=== PATIENT | male | born 1985 | race Caucasian/White ===

== ENCOUNTER 2018-12-12 09:24 | Emergency (ER) | payer SELFPAY ==
[2018-12-12 09:44] VITALS: BP 141/85
[2018-12-12] MEDS ORDERED: Ondansetron 4 MG/2 ML SDV IVPUSH ONE (10:21)
[2018-12-12] MEDS ORDERED: HYDROmorphone 1 MG/ML Syringe IVPUSH ONE (10:21)
[2018-12-12] MEDS ORDERED: Sodium Chloride 0.9% 10 ML Syringe FLUSH PRN (10:21)
--- NOTE | 2018-12-12 14:50 | CR ---
Abdomen: Supine and upright views of the abdomen were obtained. Comparison: No prior abdominal imaging. Opacity is noted within the right upper abdomen most likely representing change from previous cholecystectomy. Scattered gas and stool are noted within the colon as well as small amount of small bowel gas which is normal. No free air is seen. No abnormal calcifications or soft tissue abnormality is seen. Impression: 1. Nothing acute is identified on two-view abdominal x-ray. Diagnostic code #2
--- NOTE | 2018-12-12 18:53 | EDM.PDOC ---
ED HPI GENERAL MEDICAL PROBLEM - General Chief Complaint: Abdominal Pain Stated Complaint: R UPPER QUADRANT PAIN Time Seen by Provider: 12/12/18 10:12 Source of Information: Reports: Patient, RN Notes Reviewed - History of Present Illness INITIAL COMMENTS - FREE TEXT/NARRATIVE: 33 year old male with onset of RUQ pain that started Tuesday evening, about 14 to 16 hours RN PERITONEAL DIALYSIS. The pain continued through the night and continues to time of evaluation. There has been some radiation of pain to his back. No fever, chills, nausea or vomiting. No hx of this occuring prior to this time. No chest pain or difficulty breathing. No prior abd surgeries. Right Upper Abdomen Pain Score (Numeric/FACES): 8 - Related Data Allergies Allergy/AdvReac Type Severity Reaction Status Date / Time sulfur Allergy Cannot Uncoded 12/13/18 00:54 Remember Home Meds: Home Meds Acetaminophen/HYDROcodone [[place] 325-5 MG] 1 - 2 tab PO Q6H PRN #12 tablet 12/13 [Rx] Ondansetron [Zofran ODT] 1 tab PO Q8H PRN #10 tab.dis 12/13/18 [Rx] Past Medical History - Past Health History Medical/Surgical History: Denies Medical/Surgical History - Past Surgical History HEENT Surgical History: Reports: Adenoidectomy, Tonsillectomy Social & Family History - Tobacco Use Smoking Status *Q: Light Tobacco Smoker Years of Tobacco use: 10 Packs/Tins Daily: 0 - Caffeine Use Caffeine Use: Reports: Coffee, Soda - Recreational Drug Use Recreational Drug Use: No - Living Situation & Occupation Living situation: Reports: Alone ED ROS GENERAL - Review of Systems Review Of Systems: See Below Constitutional: Denies: Fever, Chills, Diaphoresis HEENT: Reports: No Symptoms Respiratory: Denies: Shortness of Breath Cardiovascular: Denies: Chest Pain GI/Abdominal: Reports: Abdominal Pain, Decreased Appetite. Denies: Constipation , Diarrhea, Hematochezia, Melena, Nausea, Vomiting : Reports: No Symptoms Musculoskeletal: Reports: Back Pain Skin: Reports: No Symptoms ED EXAM, GI/ABD - Physical Exam Exam: See Below General Appearance: Alert, Mild Distress Eyes: Bilateral: Normal Appearance Throat/Mouth: Normal Inspection Head: Atraumatic. No: Facial Swelling Neck: Supple Respiratory/Chest: No Respiratory Distress, Lungs Clear, Normal Breath Sounds Cardiovascular: Regular Rate, Rhythm GI/Abdominal Exam: Soft, Tender (moderate tenderness RUQ, abd otherwise soft and nontender) Back Exam: No: CVA Tenderness (L), CVA Tenderness (R) Extremities: Normal Inspection, Normal Range of Motion Neurological: Alert, Oriented, No Motor/Sensory Deficits Skin Exam: Warm, Dry, Normal Color Course - Vital Signs Last Recorded V/S: Last Vital Signs Temp 96.9 F 12/12/18 09:41 Pulse 60 12/12/18 09:41 Resp 18 12/12/18 09:41 BP 141/85 H 12/12/18 09:41 Pulse Ox 99 12/12/18 09:41 - Orders/Labs/Meds Labs: Laboratory Tests 12/12/18 12/12/18 12/12/18 Range/Units 10:34 10:34 10:34 WBC 12.01 H (4.23-9.07) K/mm3 RBC 5.27 (4.63-6.08) M/mm3 Hgb 15.5 (13.7-17.5) gm/L Hct 46.1 (40.1-51.0) % MCV 87.5 (79.0-92.2) fl MCH 29.4 (25.7-32.2) pg MCHC 33.6 (32.2-35.5) g/dl RDW Std Deviation 41.7 (35.1-43.9) fL Plt Count 323 (163-337) K/mm3 MPV 8.9 L (9.4-12.3) fl Neutrophils % (Manual) 66 H (40-60) % Band Neutrophils % 0 (0-10) % Lymphocytes % (Manual) 29 (20-40) % Atypical Lymphs % 0 % Monocytes % (Manual) 3 (2-10) % Eosinophils % (Manual) 1 (0.8-7.0) % Basophils % (Manual) 1 (0.2-1.2) Platelet Estimate Adequate RBC Morph Comment Normal Sodium 142 (136-145) mEq/L Potassium 4.0 (3.5-5.1) mEq/L Chloride 107 (98-107) mEq/L Carbon Dioxide 26 (21-32) mEq/L Anion Gap 13.0 (5-15) BUN 15 (7-18) mg/dL Creatinine 0.9 (0.7-1.3) mg/dL Est Cr Clr Drug Dosing 117.83 mL/min Estimated GFR (MDRD) > 60 (>60) mL/min BUN/Creatinine Ratio 16.7 (14-18) Glucose 101 (74-106) mg/dL Calcium 8.6 (8.5-10.1) mg/dL Total Bilirubin 0.2 (0.2-1.0) mg/dL AST 13 L (15-37) U/L ALT 30 (16-63) U/L Alkaline Phosphatase 71 (46-116) U/L C-Reactive Protein 0.3 (<1.0) mg/dL Total Protein 6.8 (6.4-8.2) g/dl Albumin 3.7 (3.4-5.0) g/dl Globulin 3.1 gm/dL Albumin/Globulin Ratio 1.2 (1-2) Lipase 109 (73-393) U/L Meds: Medications Discontinued Medications Generic Name Dose Route Start Last Admin Trade Name Freq PRN Reason Stop Dose Admin Hydromorphone HCl 1 mg 12/12/18 10:21 12/12/18 10:26 Dilaudid IVPUSH 12/12/18 10:22 1 mg ONETIME ONE Administration Ondansetron HCl 4 mg 12/12/18 10:21 12/12/18 10:26 Zofran IVPUSH 12/12/18 10:22 4 mg ONETIME ONE Administration Sodium Chloride 10 ml 12/12/18 10:21 12/12/18 10:26 Saline Flush FLUSH 10 ml ASDIRECTED PRN Administration Keep Vein Open - Re-Assessments/Exams Free Text/Narrative Re-Assessment/Exam: 12/12/18 18:53 WBC very mildly elevated at about 12,000. Other labs all releatively normal. He had good relief of pain from dilaudid IV. I felt it important to get an US today. He did eat just before coming to ED so had to wait about 5 hrs to get US. It did show sludge, no evidence of obstruction. See Radiology report for details. Have discussed symptoms and findings with Dr Awad, General Surgeon director of marketing communications. His pain is gone, he has minimal tenderness now right upper quadrant, she feels it is safe to let him go home and she will see him in the clinic early next week. Discharge instructions as documented. Departure - Departure Time of Disposition: 18:51 Disposition: Home, Self-Care 01 Condition: Fair Clinical Impression: Abdominal pain, Cholecystitis - Discharge Information Instructions: Cholecystitis Referrals: PCP,None [Primary Care Provider] - Forms: ED Department Discharge Additional Instructions: Avoid all fatty food as discussed, call [facility] tomorrow morning, [phone] and request appointment to See Dr Awad, General Surgeon Tuesday or early next week. She is expecting to see you. Return to ED if symptoms worsening in any way.
--- NOTE | 2018-12-12 18:55 | PCM.CONS ---
H&P History of Present Illness - General Date of Service: 12/12/18 Source of Information: Patient, Provider History Limitations: Reports: No Limitations - History of Present Illness Initial Comments - Free Text/Narative: The patient is a 33 y/o gentleman who presents with a 2 day history of abdominal pain after eating a [employer] sandwich. The pain occurred in the RUQ. He denies any nausea, vomiting, diarrhea or constipation. He denies any hematochezia or melena. He denies any reflux symptoms or substernal chest pain. He has never had a similar episode. He presented to the ED and had lab evaluation with an elevation in his WBC, as well as findings of sludge and mild gall bladder wall thickening on his US gallbladder. The patient reported improved symptoms after being in the ED for a few hours for testing. Right Upper Abdomen Pain Score (Numeric/FACES): 8 - Related Data Allergies/Adverse Reactions: Allergies Allergy/AdvReac Type Severity Reaction Status Date / Time sulfur Allergy Cannot Uncoded 12/12/18 09:46 Remember Home Medications: Home Meds . [No Known Home Meds] 06/16/15 [History] Past Medical History - Past Health History Medical/Surgical History: Denies Medical/Surgical History - Past Surgical History HEENT Surgical History: Reports: Adenoidectomy, Tonsillectomy Social & Family History - Family History GI: Reports: Cholelithiasis - Tobacco Use Smoking Status *Q: Light Tobacco Smoker Years of Tobacco use: 10 Packs/Tins Daily: 0 - Caffeine Use Caffeine Use: Reports: Coffee, Soda - Recreational Drug Use Recreational Drug Use: No - Living Situation & Occupation Living situation: Reports: Alone H&P Review of Systems - Review of Systems: Review Of Systems: See Below General: Reports: No Symptoms HEENT: Reports: No Symptoms Pulmonary: Reports: No Symptoms Cardiovascular: Reports: No Symptoms Gastrointestinal: Reports: Abdominal Pain Genitourinary: Reports: No Symptoms Musculoskeletal: Reports: No Symptoms Skin: Reports: No Symptoms Psychiatric: Reports: No Symptoms Neurological: Reports: No Symptoms Hematologic/Lymphatic: Reports: No Symptoms Exam - Exam Exam: See Below - Vital Signs Vital Signs: Last Vital Signs Temp 36.1 C 12/12/18 09:41 Pulse 60 12/12/18 09:41 Resp 18 12/12/18 09:41 BP 141/85 H 12/12/18 09:41 Pulse Ox 99 12/12/18 09:41 Weight: 99.79 kg - Exam Quality Assessment: No: Supplemental Oxygen General: Alert, Oriented HEENT: Conjunctiva Clear, EOMI Neck: Supple Lungs: Normal Respiratory Effort GI/Abdominal Exam: Soft, Tender (tenderness to deep palpation the RUQ). No: Distended Extremities: Normal Inspection, No Pedal Edema Peripheral Pulses: 2+: Dorsalis Pedis (L), Dorsalis Pedis (R) Skin: Warm, Dry, Intact Neurological: Cranial Nerves Intact Neuro Extensive - Mental Status: Oriented x3, Normal Mood/Affect - Patient Data Lab Results Last 24 hrs: Laboratory Results - last 24 hr 12/12/18 12/12/18 12/12/18 Range/Units 10:34 10:34 10:34 WBC 12.01 H (4.23-9.07) K/mm3 RBC 5.27 (4.63-6.08) M/mm3 Hgb 15.5 (13.7-17.5) gm/L Hct 46.1 (40.1-51.0) % MCV 87.5 (79.0-92.2) fl MCH 29.4 (25.7-32.2) pg MCHC 33.6 (32.2-35.5) g/dl RDW Std Deviation 41.7 (35.1-43.9) fL Plt Count 323 (163-337) K/mm3 MPV 8.9 L (9.4-12.3) fl Neutrophils % (Manual) 66 H (40-60) % Band Neutrophils % 0 (0-10) % Lymphocytes % (Manual) 29 (20-40) % Atypical Lymphs % 0 % Monocytes % (Manual) 3 (2-10) % Eosinophils % (Manual) 1 (0.8-7.0) % Basophils % (Manual) 1 (0.2-1.2) Platelet Estimate Adequate RBC Morph Comment Normal Sodium 142 (136-145) mEq/L Potassium 4.0 (3.5-5.1) mEq/L Chloride 107 (98-107) mEq/L Carbon Dioxide 26 (21-32) mEq/L Anion Gap 13.0 (5-15) BUN 15 (7-18) mg/dL Creatinine 0.9 (0.7-1.3) mg/dL Est Cr Clr Drug Dosing 117.83 mL/min Estimated GFR (MDRD) > 60 (>60) mL/min BUN/Creatinine Ratio 16.7 (14-18) Glucose 101 (74-106) mg/dL Calcium 8.6 (8.5-10.1) mg/dL Total Bilirubin 0.2 (0.2-1.0) mg/dL AST 13 L (15-37) U/L ALT 30 (16-63) U/L Alkaline Phosphatase 71 (46-116) U/L C-Reactive Protein 0.3 (<1.0) mg/dL Total Protein 6.8 (6.4-8.2) g/dl Albumin 3.7 (3.4-5.0) g/dl Globulin 3.1 gm/dL Albumin/Globulin Ratio 1.2 (1-2) Lipase 109 (73-393) U/L Result Diagrams: 12/12/18 10:34 12/12/18 10:34 Consult PN Assessment/Plan Procedures: Procedures EMERGENCY DEPT VISIT (06/16/15) (1) Gallbladder sludge SNOMED Code(s): 37607737, 15981146 Code(s): K82.8 - OTHER SPECIFIED DISEASES OF GALLBLADDER Current Visit: Yes Problem List Initiated/Reviewed/Updated: Yes Plan: 33 y/o gentleman with biliary colic, improved after time in ED - may discharge home with close follow up to General surgery to schedule/ discuss cholecystectomy - advise low-fat diet - may take OTC pain control Please give pt information for follow-up on Monday 12/18 Kassie Bae MD General Surgery
--- NOTE | 2018-12-13 09:11 | US ---
Limited abdominal ultrasound: Multiple real-time images of the upper right abdomen were obtained. Comparison: No prior ultrasound exam, prior abdominal x-ray performed earlier on the same day (2:04 PM). Liver shows no focal parenchymal abnormality. Gallbladder shows a mild amount of sludge without shadowing gallstones. No gallbladder wall thickening or biliary duct dilatation is seen. Pancreas is obscured from bowel gas. Right kidney shows no hydronephrosis or mass. Right kidney has a length of 12.0 cm. Inferior vena cava is patent. Portal vein shows normal hepatopedal flow. Impression: 1. Obscured pancreas due to bowel gas. 2. Mild amount of sludge within the gallbladder with no gallbladder wall thickening or biliary ductal dilatation. 3. No additional abnormality is identified on right upper quadrant abdominal ultrasound. Diagnostic code #2 I agree with preliminary report from [facility], finalized on 12/12/18, 6:02 PM Central Time
== END 2018-12-12 18:58 | disposition home or self-care (01) ==
LOC: JD.ED 09:24
DX: K81.9 Cholecystitis, unspecified (principal); F17.200 Nicotine dependence, unspecified, uncomplicated; Z88.8 Allergy status to other drugs, medicaments and biological substances
CPT/HCPCS: 36415; 74019; 76705; 80053; 82977; 83690; 85007; 85027; 86140; 96374; 96375; 99284; J1170; J2405

== ENCOUNTER 2019-12-07 02:27 | Emergency (ER) | payer SELFPAY ==
[2019-12-07 02:49] VITALS: BP 139/91; PULSE 60
[2019-12-07] MEDS ORDERED: HYDROmorphone 1 MG/ML Syringe IVPUSH STA (03:44)
[2019-12-07] MEDS ORDERED: Ondansetron 4 MG/2 ML SDV IVPUSH ONE (03:44)
[2019-12-07] MEDS ORDERED: Sodium Chloride 0.9% 1,000 ML IV SCH (03:45)
--- NOTE | 2019-12-07 03:51 | EDM.PDOC ---
ED HPI GENERAL MEDICAL PROBLEM - General Chief Complaint: Abdominal Pain Stated Complaint: ABDOMINAL PAIN Time Seen by Provider: 12/07/19 03:30 Source of Information: Reports: Patient History Limitations: Reports: No Limitations - History of Present Illness INITIAL COMMENTS - FREE TEXT/NARRATIVE: Mr. Cantu is a very pleasant 34-year-old gentleman with no chronic medical problems, who, medical records indicate, was seen in this ED on 12/12/2018 and 12/13/2018 for right upper quadrant abdominal pain that developed after he had eaten a [employer] sandwich. An ultrasound of his right upper quadrant found sludge and mild gallbladder wall thickening. He was evaluated by the Surgeon, who recommended an outpatient follow-up. The patient tells me at this time that he was too scared to undergo a cholecystectomy, therefore he did not follow-up with the Surgeon. The patient now returns the ED stating that he was woken around 01:30 this morning with severe right upper quadrant abdominal pain. He is unable to describe the character of the pain. He states that it is constant, and does not radiate. He states that he feels slightly better if he lies in the left decubitus position, otherwise, he has not identified any modifiers. He did not take any [id number] or home remedies prior to coming to the ED. The patient states that he last ate around 18:00 last night, a dinner consisting of 3 bratwurst sausages. Here in the ED, the patient's initial BP is found to be slightly elevated at 139/91, otherwise, he is hemodynamically stable, afebrile, saturating 100% on room air. Other than this morning's abdominal pain, the patient denies recent fever, chills, sore throat, ear pain, nasal or sinus congestion, cough, dyspnea, chest pain, palpitations, nausea, vomiting, constipation, diarrhea, abdominal pain, urinary symptoms, recent weight gain or weight loss, recent bloody bowel movements or black bowel movements, recent joint aches, headaches, or rashes. The patient does not have a PCP. He was previously evaluated by Dr. Kassie Bae. Right Upper Abdomen Pain Score (Numeric/FACES): 10 - Related Data Allergies Allergy/AdvReac Type Severity Reaction Status Date / Time sulfur Allergy Severe Cannot Uncoded 06/26/20 04:42 Remember Home Meds: Home Meds . [No Known Home Meds] 12/07/19 [History] Past Medical History - Past Surgical History HEENT Surgical History: Reports: Adenoidectomy, Oral Surgery (wisdom teeth extraction), Tonsillectomy Male Surgical History: Reports: Circumcision Social & Family History - Family History GI: Reports: Cholelithiasis - Tobacco Use Smoking Status *Q: Current Every Day Smoker Years of Tobacco use: 20 Packs/Tins Daily: 1 Packs/Tins Daily Comment: Down from 2 ppd - Caffeine Use Caffeine Use: Reports: Coffee - Alcohol Use Alcohol Use History: Yes Alcohol Use Frequency: Rarely - Recreational Drug Use Recreational Drug Use: Yes Drug Use in Last 12 Months: Yes Recreational Drug Type: Reports: Marijuana/Hashish (smokes on occasion, last late October 2019) - Living Situation & Occupation Living situation: Reports: , Other (with a friend) Occupation: Unemployed ED ROS GENERAL - Review of Systems Review Of Systems: Comprehensive ROS is negative, except as noted in HPI. ED EXAM, GI/ABD - Physical Exam Exam: See Below Exam Limited By: No Limitations General Appearance: Alert, WD/WN, Mild Distress (appears uncomfortable) Ears: Normal External Exam, Hearing Grossly Normal Nose: Normal Inspection Throat/Mouth: Normal Inspection, Normal Lips, Normal Voice, No Airway Compromise Head: Atraumatic, Normocephalic Neck: Normal Inspection, Full Range of Motion Respiratory/Chest: No Respiratory Distress, Lungs Clear, Normal Breath Sounds, No Accessory Muscle Use Cardiovascular: Normal Peripheral Pulses, Regular Rate, Rhythm, No Edema, No Gallop, No JVD, No Murmur, No Rub GI/Abdominal Exam: Normal Bowel Sounds, Soft, No Organomegaly, No Distention, No Abnormal Bruit, No Mass, Tender (Primarily in the right upper quadrant, but with some tenderness to his entire right abdomen. Questionable true Avery's sign. No tenderness to the left abdomen.) (Male) Exam: Deferred Rectal (Males) Exam: Deferred Back Exam: Normal Inspection, Full Range of Motion. No: CVA Tenderness (L), CVA Tenderness (R) Extremities: Normal Inspection, Normal Range of Motion, No Pedal Edema, Normal Capillary Refill Neurological: Alert, Oriented, Normal Cognition, No Motor/Sensory Deficits Psychiatric: Normal Affect Skin Exam: Warm, Dry, Intact, Normal Color, No Rash Course - Vital Signs Last Recorded V/S: Last Vital Signs Temp 36.0 C L 12/07/19 02:38 Pulse 60 12/07/19 02:38 Resp 20 12/07/19 02:38 BP 139/91 H 12/07/19 02:38 Pulse Ox 100 12/07/19 02:38 - Orders/Labs/Meds Orders: Active Orders 24 hr Category Date Time Status Sodium Chloride 0.9% [Normal Saline] 1,000 ml Med 12/07/19 03:45 Active IV ASDIRECTED Medication Orders Sodium Chloride (Normal Saline) 1,000 mls @ 150 mls/hr IV ASDIRECTED JANN Last Admin: 12/07/19 03:56 Dose: 150 mls/hr Documented by: BETO Labs: Laboratory Tests 12/07/19 12/07/19 Range/Units 03:53 03:53 WBC 9.28 H (4.23-9.07) K/mm3 RBC 5.50 (4.63-6.08) M/mm3 Hgb 15.7 (13.7-17.5) gm/dl Hct 48.4 (40.1-51.0) % MCV 88.0 (79.0-92.2) fl MCH 28.5 (25.7-32.2) pg MCHC 32.4 (32.2-35.5) g/dl RDW Std Deviation 42.0 (35.1-43.9) fL Plt Count 353 H (163-337) K/mm3 MPV 8.6 L (9.4-12.3) fl Neutrophils % (Manual) 79 H (40-60) % Band Neutrophils % 0 (0-10) % Lymphocytes % (Manual) 16 L (20-40) % Atypical Lymphs % 0 % Monocytes % (Manual) 4 (2-10) % Eosinophils % (Manual) 1 (0.8-7.0) % Basophils % (Manual) 0 L (0.2-1.2) Platelet Estimate Adequate RBC Morph Comment Normal Sodium 142 (136-145) mEq/L Potassium 4.1 (3.5-5.1) mEq/L Chloride 105 (98-107) mEq/L Carbon Dioxide 31 (21-32) mEq/L Anion Gap 10.1 (5-15) BUN 15 (7-18) mg/dL Creatinine 1.0 (0.7-1.3) mg/dL Est Cr Clr Drug Dosing 105.07 mL/min Estimated GFR (MDRD) > 60 (>60) mL/min BUN/Creatinine Ratio 15.0 (14-18) Glucose 111 H (74-106) mg/dL Calcium 9.0 (8.5-10.1) mg/dL Total Bilirubin 0.2 (0.2-1.0) mg/dL AST 10 L (15-37) U/L ALT 17 (16-63) U/L Alkaline Phosphatase 85 (46-116) U/L Total Protein 7.1 (6.4-8.2) g/dl Albumin 3.7 (3.4-5.0) g/dl Globulin 3.4 gm/dL Albumin/Globulin Ratio 1.1 (1-2) Lipase 80 (73-393) U/L Meds: Medications Generic Name Dose Route Start Last Admin Trade Name Freq PRN Reason Stop Dose Admin Sodium Chloride 1,000 mls @ 150 mls/hr 12/07/19 03:45 12/07/19 03:56 Normal Saline IV 150 mls/hr ASDIRECTED JANN Administration Discontinued Medications Generic Name Dose Route Start Last Admin Trade Name Freq PRN Reason Stop Dose Admin Hydromorphone HCl 1 mg 12/07/19 03:44 12/07/19 03:57 Dilaudid IVPUSH 12/07/19 03:45 1 mg ONETIME STA Administration Ondansetron HCl 4 mg 12/07/19 03:44 12/07/19 03:56 Zofran IVPUSH 12/07/19 03:45 4 mg ONETIME ONE Administration - Re-Assessments/Exams Free Text/Narrative Re-Assessment/Exam: 12/07/19 03:46 As above, the patient developed sudden onset right upper quadrant pain around 01:30 morning. The pain does not radiate, and he has no associated symptoms, such as nausea, vomiting, diarrhea, or fever. On physical exam, he is most tender in the right upper quadrant, although has some tenderness to his entire right abdomen. It is questionable whether or not he has a true Avery's sign, but based on his history and physical examination, his pain is most likely due to acute cholecystitis. I have ordered a work-up that includes blood work, an ultrasound of the right upper quadrant, and a CT scan of his abdomen and pelvis with oral and IV contrast. In the meantime, the patient will be treated with IV Dilaudid, IV Zofran, and IV fluid. 12/07/19 05:04 The patient's CBC is remarkable for a WBC count mildly elevated at 9.28, but with 0% bandemia. His platelets are mildly elevated at 353,000, with the remainder of his CBC being unremarkable. His CMP is remarkable for a blood glucose slightly elevated at 111, with the remainder of his CMP being unremarkable. His lipase level is within normal limits at 80. Ultrasound of the right upper quadrant is read by [facility] as: 1. Cholelithiasis without wall thickening or biliary distention. 2. Hepatic steatosis/hepatocellular disease. 12/07/19 06:26 CT of the abdomen and pelvis with oral and IV contrast as read by Dr. Adler as: 1. Increased stool within the colon. 2. Other chronic findings as noted above. 3. Nothing acute is appreciated. 12/07/19 07:00 Test results discussed with the patient. He is feeling much better. As above, today's work-up is grossly unremarkable and does not explain the cause of his pain. I explained that his pain may very well be due to gallbladder disease, but at this time, there is not much evidence to prove it. Further evaluation, that will likely include a HIDA scan, is necessary. I will refer the patient back to Dr. Awad for that evaluation. Departure - Departure Time of Disposition: 07:01 Disposition: Home, Self-Care 01 Condition: Good Clinical Impression: Right upper quadrant abdominal pain of unknown etiology, Cholelithiasis - Discharge Information *PRESCRIPTION DRUG MONITORING PROGRAM REVIEWED*: Not Applicable *COPY OF PRESCRIPTION DRUG MONITORING REPORT IN PATIENT ELEANOR: Not Applicable Instructions: Cholelithiasis, [id number], Abdominal Pain, Adult, [id number] Referrals: PCP,None [Primary Care Provider] - Kassie Bae MD [Physician] - Forms: ED Department Discharge Additional Instructions: You were seen in the emergency room after waking up with severe right upper abdominal pain. Work-up in the ER included blood work, an ultrasound of your upper right abdomen, and a CT scan of your abdomen and pelvis with oral and IV contrast. The ultrasound showed that you have gallstones, but was otherwise unremarkable, with no sign of acute cholecystitis. We recommend that you eat as low-fat a diet as you can tolerate. If your pain is due to a sick gallbladder, eating fatty, greasy, or oily foods will bring on pain. We recommend that you follow-up with the surgeon Dr. Kassie Bae for further evaluation of your pain. If any other problems, please do not hesitate to return to the ER. Sepsis Event Note (ED) - Evaluation Sepsis Screening Result: No Definite Risk - Focused Exam Vital Signs: Vital Signs Temp Pulse Resp BP Pulse Ox 12/07/19 02:38 36.0 C L 60 20 139/91 H 100 - My Orders Last 24 Hours: My Active Orders 12/07/19 03:45 Sodium Chloride 0.9% [Normal Saline] 1,000 ml IV ASDIRECTED - Assessment/Plan Last 24 Hours: My Active Orders 12/07/19 03:45 Sodium Chloride 0.9% [Normal Saline] 1,000 ml IV ASDIRECTED
--- NOTE | 2019-12-07 06:23 | CT ---
CT abdomen and pelvis Technique: Multiple axial sections were obtained from above the dome of the diaphragm inferiorly through the pubic symphysis. Intravenous contrast was utilized. Proximal small bowel contrast is seen. Comparison: No prior CT abdomen or pelvis exam, previous right upper quadrant abdominal ultrasound performed earlier on the same day is available (4:27 AM). Findings: Visualized lung bases showed nothing acute. Liver shows possible mild fatty infiltration. Spleen appears within normal limits. Adrenal glands show no nodule. Pancreas shows no discrete abnormality. Gallbladder contains no calcified gallstones. Kidneys show symmetric contrast enhancement without hydronephrosis or mass. Aorta shows no aneurysm. No retroperitoneal adenopathy or mesenteric abnormalities are seen. Increased stool is seen throughout the colon. No pelvic mass or adenopathy is appreciated. Appendix is felt to be visualized and is normal in size. Delayed images shows contrast within the distal ureters and within the bladder. Bone window settings were reviewed which shows no acute osseous finding. 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 Impression: 1. Increased stool within the colon. 2. Other chronic findings as noted above. 3. Nothing acute is appreciated. Diagnostic code #2 Study was dictated in MDT
--- NOTE | 2019-12-07 06:45 | US ---
Limited abdominal ultrasound: Multiple real-time images of the upper right abdomen were obtained. Comparison: No previous study. Liver shows minimal increased echoes possibly due to mild fatty infiltration. Gallbladder appears somewhat dilated and shows evidence of numerous gallstones. No gallbladder wall thickening or biliary duct dilatation is appreciated. Right kidney shows no hydronephrosis or mass. Right kidney measures 10.7 cm in length. Pancreas is obscured from bowel gas. Inferior vena cava is patent. Main portal vein shows hepatopedal flow. Impression: 1. Possible mild fatty infiltration. 2. Mildly dilated gallbladder with gallstones. No gallbladder wall thickening or biliary duct dilatation is appreciated. 3. Obscured pancreas by bowel gas. Diagnostic code #3 Agree with preliminary report issued by [facility] ([facility] preliminary report dictated on 12/07/19, 5:58 AM Central Daylight Time) Study was dictated in MDT
== END 2019-12-07 07:20 | disposition home or self-care (01) ==
LOC: JD.ED 02:27
DX: K80.20 Calculus of gallbladder without cholecystitis without obstruction (principal); F17.210 Nicotine dependence, cigarettes, uncomplicated; Z88.2 Allergy status to sulfonamides
CPT/HCPCS: 36415; 74177; 74177-26; 76705; 76705-26; 80053; 83690; 85007; 85027; 96374; 96375; 99283; 99284-25; J1170; J2405; J7030

== ENCOUNTER 2020-01-09 02:11 | Emergency (ER) | payer SELFPAY ==
--- NOTE | 2020-01-09 02:34 | EDM.PDOC ---
ED HPI GENERAL MEDICAL PROBLEM - General Chief Complaint: Abdominal Pain Stated Complaint: GALLBLADDER ISSUES Time Seen by Provider: 01/09/20 02:28 - History of Present Illness INITIAL COMMENTS - FREE TEXT/NARRATIVE: 34-year-old male presents the emergency room with abdominal pain. Patient has recurrent right upper quadrant pain thought to have biliary colic. He had an ultrasound and a CT about a month ago. He has had multiple work-ups for this and the patient has some anxiety about having his gallbladder taken out. Also the patient has been homeless for a while but has remedied that situation and would consider surgical intervention if that was deemed necessary to control his symptoms. Patient has had multiple episodes of this in the past. The patient has been trying to watch his diet. This evening he had some goulash and he did not think it was too fatty. Patient denies any fevers or chills but he has significant right upper quadrant pain as well as some nausea and vomiting. Tonight's episode started a couple hours after he ate. Right Abdomen Pain Score (Numeric/FACES): 10 - Related Data Allergies Allergy/AdvReac Type Severity Reaction Status Date / Time sulfur Allergy Severe Cannot Uncoded 01/09/20 02:21 Remember Home Meds: Home Meds Hydrocodone/Acetaminophen [[place] 5-325 Tablet] 1 - 2 each PO Q6H PRN #10 tablet 01/09/20 [Rx] Ondansetron [Zofran ODT] 4 mg PO Q6H PRN #8 tab.dis 01/09/20 [Rx] Past Medical History - Past Health History Medical/Surgical History: Denies Medical/Surgical History Gastrointestinal History: Reports: Cholelithiasis Endocrine/Metabolic History: Reports: Obesity/BMI 30+ - Past Surgical History HEENT Surgical History: Reports: Adenoidectomy, Oral Surgery, Tonsillectomy Male Surgical History: Reports: Circumcision Social & Family History - Family History GI: Reports: Cholelithiasis - Tobacco Use Smoking Status *Q: Current Every Day Smoker Years of Tobacco use: 10 Packs/Tins Daily: 0.5 - Caffeine Use Caffeine Use: Reports: None - Recreational Drug Use Recreational Drug Use: No - Living Situation & Occupation Living situation: Reports: , Other (with a friend) Occupation: Unemployed ED ROS GENERAL - Review of Systems Review Of Systems: See Below Constitutional: Reports: No Symptoms HEENT: Reports: No Symptoms Respiratory: Reports: No Symptoms, Cough Cardiovascular: Reports: No Symptoms GI/Abdominal: Reports: Abdominal Pain, Nausea, Vomiting. Denies: Constipation, Diarrhea : Reports: No Symptoms ED EXAM, GI/ABD - Physical Exam Exam: See Below Exam Limited By: No Limitations General Appearance: Alert, Mild Distress (From the discomfort and the nausea), Other (He appears to be in a sinus bradycardia on the monitor sometimes into the 30s seem to have symptoms associated with this) Head: Atraumatic, Normocephalic Neck: Normal Inspection, Supple, Non-Tender, Full Range of Motion Respiratory/Chest: No Respiratory Distress, Lungs Clear, Normal Breath Sounds Cardiovascular: Regular Rate, Rhythm, No Edema, No Murmur GI/Abdominal Exam: Normal Bowel Sounds, Soft, Tender (Significant discomfort in the right upper quadrant no rigidity rebound or guarding noted) Back Exam: Normal Inspection. No: CVA Tenderness (L), CVA Tenderness (R) Extremities: Normal Inspection, No Pedal Edema Neurological: Alert, Oriented, Normal Cognition Course - Vital Signs Last Recorded V/S: Last Vital Signs Temp 36.3 C 01/09/20 02:18 Pulse 51 L 01/09/20 02:18 Resp 24 H 01/09/20 02:18 BP 144/76 H 01/09/20 02:18 Pulse Ox 100 01/09/20 02:18 - Orders/Labs/Meds Orders: Active Orders 24 hr Category Date Time Status EKG Documentation Completion [RC] ASDIRECTED Care 01/09/20 03:18 Active Lactated Ringers [Ringers, Lactated] 1,000 ml Med 01/09/20 02:45 Active IV ASDIRECTED EKG 12 Lead [EK] Stat Ther 01/09/20 03:18 Ordered Medication Orders Lactated Ringer's (Ringers, Lactated) 1,000 mls @ 125 mls/hr IV ASDIRECTED JANN Last Admin: 01/09/20 02:56 Dose: 125 mls/hr Documented by: VIVIANA Labs: Laboratory Tests 01/09/20 01/09/20 Range/Units 02:50 02:50 WBC 9.71 H (4.23-9.07) K/mm3 RBC 5.28 (4.63-6.08) M/mm3 Hgb 15.2 (13.7-17.5) gm/dl Hct 46.4 (40.1-51.0) % MCV 87.9 (79.0-92.2) fl MCH 28.8 (25.7-32.2) pg MCHC 32.8 (32.2-35.5) g/dl RDW Std Deviation 41.7 (35.1-43.9) fL Plt Count 336 (163-337) K/mm3 MPV 8.7 L (9.4-12.3) fl Neut % (Auto) 71.6 H (34.0-67.9) % Lymph % (Auto) 17.7 L (21.8-53.1) % E[place] % (Auto) 8.2 (5.3-12.2) % Eos % (Auto) 2.0 (0.8-7.0) Baso % (Auto) 0.3 (0.1-1.2) % Neut # (Auto) 6.95 H (1.78-5.38) K/mm3 Lymph # (Auto) 1.72 (1.32-3.57) K/mm3 E[place] # (Auto) 0.80 (0.30-0.82) K/mm3 Eos # (Auto) 0.19 (0.04-0.54) K/mm3 Baso # (Auto) 0.03 (0.01-0.08) K/mm3 Sodium 140 (136-145) mEq/L Potassium 4.1 (3.5-5.1) mEq/L Chloride 102 (98-107) mEq/L Carbon Dioxide 30 (21-32) mEq/L Anion Gap 12.1 (5-15) BUN 12 (7-18) mg/dL Creatinine 1.1 (0.7-1.3) mg/dL Est Cr Clr Drug Dosing 95.52 mL/min Estimated GFR (MDRD) > 60 (>60) mL/min BUN/Creatinine Ratio 10.9 L (14-18) Glucose 133 H (74-106) mg/dL Calcium 9.9 (8.5-10.1) mg/dL Total Bilirubin 0.3 (0.2-1.0) mg/dL Direct Bilirubin 0.10 (0.0-0.2) mg/dl AST 18 (15-37) U/L ALT 28 (16-63) U/L Alkaline Phosphatase 77 (46-116) U/L Total Protein 7.6 (6.4-8.2) g/dl Albumin 4.1 (3.4-5.0) g/dl Globulin 3.5 gm/dL Albumin/Globulin Ratio 1.2 (1-2) Lipase 93 (73-393) U/L Meds: Medications Generic Name Dose Route Start Last Admin Trade Name Freq PRN Reason Stop Dose Admin Lactated Ringer's 1,000 mls @ 125 mls/hr 01/09/20 02:45 01/09/20 02:56 Ringers, Lactated IV 125 mls/hr ASDIRECTED JANN Administration Discontinued Medications Generic Name Dose Route Start Last Admin Trade Name Freq PRN Reason Stop Dose Admin Hydrocodone Bitart/Acetaminophen 1 tab 01/09/20 04:48 01/09/20 04:58 [place] 325-5 Mg PO 01/09/20 04:49 1 tab ONETIME ONE Administration Hydrocodone Bitart/Acetaminophen 1 tab 01/09/20 04:49 01/09/20 04:58 [place] 325-5 Mg PO 01/09/20 04:50 1 tab ONETIME ONE Administration Fentanyl 50 mcg 01/09/20 02:40 01/09/20 03:01 Sublimaze IVPUSH 01/09/20 02:41 25 mcg ONETIME ONE Administration Ondansetron HCl 4 mg 01/09/20 02:40 01/09/20 02:52 Zofran IVPUSH 01/09/20 02:41 4 mg ONETIME ONE Administration - Re-Assessments/Exams Free Text/Narrative Re-Assessment/Exam: 01/09/20 04:52 Laboratory evaluation is nondiagnostic offered to check gallbladder ultrasound patient declined this. I did discuss with the patient the importance of following up with the surgeon he has been referred several times in the past and has not followed up he has some anxiety about having his gallbladder taken out. However he keeps having symptoms like this. While here in the emergency department we had better improvement with his nausea with Zofran. His pulse is been in the 30s and 40s sinus driven. It was difficult to see this on the EKG on the telemetry the V lead did show his P waves pretty reliably with a first- degree AV block. Patient states his pulse is usually in the 50s the patient is not having any lightheadedness chest pain breathing difficulties or shortness of breath so this is an asymptomatic bradycardia could be worsened by the nausea and vomiting he was having. At this point the patient would like to go home Departure - Departure Time of Disposition: 04:54 Disposition: Home, Self-Care 01 Clinical Impression: Recurrent biliary colic - Discharge Information Prescriptions: Hydrocodone/Acetaminophen [[place] 5-325 Tablet] 1 - 2 each PO Q6H PRN #10 tablet PRN Reason: Abdominal Pain Ondansetron [Zofran ODT] 4 mg PO Q6H PRN #8 tab.dis PRN Reason: Nausea/Vomiting Instructions: Biliary Colic, Adult Referrals: PCP,None [Primary Care Provider] - Fredy Hart MD [Physician] - Forms: ED Department Discharge Additional Instructions: Return to the emergency room with any questions problems or worsening symptoms. Use the Zofran and the [place] as directed. Follow-up with Dr. Hart, he is a general surgeon they can finish your evaluation for your suspected gallbladder disease. You may also follow-up with your regular physician to get this done. You need to establish with someone. Sepsis Event Note (ED) - Evaluation Sepsis Screening Result: No Definite Risk - Focused Exam Vital Signs: Vital Signs Temp Pulse Resp BP Pulse Ox 01/09/20 02:18 36.3 C 51 L 24 H 144/76 H 100 - My Orders Last 24 Hours: My Active Orders 01/09/20 02:45 Lactated Ringers [Ringers, Lactated] 1,000 ml IV ASDIRECTED 01/09/20 03:18 EKG Documentation Completion [RC] ASDIRECTED EKG 12 Lead [EK] Stat - Assessment/Plan Last 24 Hours: My Active Orders 01/09/20 02:45 Lactated Ringers [Ringers, Lactated] 1,000 ml IV ASDIRECTED 01/09/20 03:18 EKG Documentation Completion [RC] ASDIRECTED EKG 12 Lead [EK] Stat
[2020-01-09] MEDS ORDERED: fentaNYL 100 MCG/2 ML SDV IVPUSH ONE (02:40)
[2020-01-09] MEDS ORDERED: Ondansetron 4 MG/2 ML SDV IVPUSH ONE (02:40)
[2020-01-09] MEDS ORDERED: Lactated Ringers 1,000 ML IV SCH (02:45)
[2020-01-09] MEDS ORDERED: Acetaminophen/HYDROcodone 325-5 MG Tab PO ONE ×2 (04:48→04:49)
[2020-01-09 05:14] VITALS: BP 146/71; PULSE 54
== END 2020-01-09 05:11 | disposition home or self-care (01) ==
LOC: JD.ED 02:11
DX: K80.50 Calculus of bile duct without cholangitis or cholecystitis without obstruction (principal); F17.210 Nicotine dependence, cigarettes, uncomplicated; E66.9 Obesity, unspecified; Z68.29 Body mass index [BMI] 29.0-29.9, adult; Z91.048 Other nonmedicinal substance allergy status
CPT/HCPCS: 36415; 80053; 82248; 83690; 85025; 93005; 93010; 96361; 96374; 96375; 99284; 99284-25; A9270-GY; J2405; J3010; J7120